=== PATIENT | male | born 1955 | race Caucasian/White ===

== ENCOUNTER 2019-01-15 10:34 | Day surgery (SDC) | payer OTHER ==
[~2019-01-15 10:34] MED LIST: KETOROLAC TROMETHAMINE 30 MG/1ML VIAL ONE; LACTATED RINGERS 1,000 ML IV.SOLN IV ONE; LIDOCAINE HCL 2% PF 100MG/5ML VIAL IJ ONE; MIDAZOLAM HCL 2 MG/2 ML VIAL ONE; ONDANSETRON HCL/PF 4 MG/ 2ML VIAL ONE; PROPOFOL 200 MG/20 ML VIAL IV ONE; SEVOFLURANE 250 ML LIQUID IH ONE; ePHEDrine SULFATE 50 MG/1 ML IVP ONE; fentaNYL CITRATE/PF 100 MCG/2 ML INJ. ONE
== END 2019-01-15 13:40 | disposition home or self-care (01) ==
LOC: OPSURG 10:34
PROVIDERS: ATTEND Chiropractor
DX: M47.26 Other spondylosis with radiculopathy, lumbar region (principal); M99.06 Segmental and somatic dysfunction of lower extremity; M70.61 Trochanteric bursitis, right hip; M99.15 Subluxation complex (vertebral) of pelvic region
CPT/HCPCS: 22505; 27198; 27275; J1885; J2001; J2250; J2405; J2704; J3010; J7120

== ENCOUNTER 2019-01-16 10:56 | Day surgery (SDC) | payer OTHER ==
[~2019-01-16 10:56] MED LIST changes: -KETOROLAC TROMETHAMINE 30 MG/1ML VIAL ONE; -MIDAZOLAM HCL 2 MG/2 ML VIAL ONE; -ONDANSETRON HCL/PF 4 MG/ 2ML VIAL ONE; -ePHEDrine SULFATE 50 MG/1 ML IVP ONE
== END 2019-01-16 13:35 | disposition home or self-care (01) ==
LOC: OPSURG 10:56
PROVIDERS: ATTEND Chiropractor
DX: M47.26 Other spondylosis with radiculopathy, lumbar region (principal); M70.61 Trochanteric bursitis, right hip; M99.15 Subluxation complex (vertebral) of pelvic region; M99.06 Segmental and somatic dysfunction of lower extremity
CPT/HCPCS: 22505; 27198; 27275; J2001; J2704; J3010; J7120

== ENCOUNTER 2019-01-17 10:51 | Day surgery (SDC) | payer OTHER ==
[~2019-01-17 10:51] MED LIST changes: +ESMOLOL HCL 100 MG/10 ML IV ONE; +KETOROLAC TROMETHAMINE 30 MG/1ML VIAL ONE; +ePHEDrine SULFATE 50 MG/1 ML IVP ONE
== END 2019-01-17 12:48 | disposition home or self-care (01) ==
LOC: OPSURG 10:51
PROVIDERS: ATTEND Chiropractor
DX: M47.26 Other spondylosis with radiculopathy, lumbar region (principal); M99.15 Subluxation complex (vertebral) of pelvic region; M99.06 Segmental and somatic dysfunction of lower extremity; M70.61 Trochanteric bursitis, right hip
CPT/HCPCS: 22505; 27198; 27275; J1885; J2001; J2704; J3010; J7120

== ENCOUNTER 2019-06-17 06:31 | Day surgery (SDC) | payer OTHER ==
[2019-06-17] MEDS ORDERED: methylPREDNISolone ACETATE 80 MG/ML VIAL IM ONE (08:48)
[2019-06-17] MEDS ORDERED: fentaNYL CITRATE/PF 100 MCG/2 ML INJ. ONE (08:48)
[2019-06-17] MEDS ORDERED: LIDOCAINE HCL 2% PF 100MG/5ML VIAL IJ ONE (08:48)
[2019-06-17] MEDS ORDERED: LACTATED RINGERS 1,000 ML IV.SOLN IV ONE (08:48)
[2019-06-17] MEDS ORDERED: MIDAZOLAM HCL 2 MG/2 ML VIAL ONE (08:48)
[2019-06-17] MEDS ORDERED: 0.9 % SODIUM CHLORIDE PF 10 ML VIAL IJ ONE (08:48)
[2019-06-17] MEDS ORDERED: LIDOCAINE HCL 1% PF 300MG/30ML VIAL ONE (08:48)
--- NOTE | 2019-07-04 10:39 | Operative Note ---
PROCEDURE DATE: 06/17/2019 PREOPERATIVE DIAGNOSES: 1. Lumbar spondylosis without myelopathy. 2. Lumbar arthropathy. POSTOPERATIVE DIAGNOSES: 1. Lumbar spondylosis without myelopathy. 2. Lumbar arthropathy. PROCEDURE: Lumbar radiofrequency ablation, L4-5 and L5-S1 medial branch levels, bilaterally. LOCATION OF PROCEDURE: [place], [place]. SURGEON: Ilan Cerda M.D. ASSISTANTS: None ANESTHESIA: MAC HISTORY OF PRESENT ILLNESS: Mr. Teran was referred to me by Dr. Corey and Dr. Hensley, who had previously performed lumbar medial branch blocks. I am asked to perform the radiofrequency ablation at the L4-5, L5-S1 level. The patient was seen preoperatively. His chart was reviewed. I have discussed the procedure with the patient extensively, with description of the procedure step by step, benefits and risks as well as other discussions. I have answered all his questions and we are ready to proceed. The patients preprocedure pain level was 4/10 intensity. The patients demographics have been reviewed. The preprocedure paperwork has been reviewed as well as signed informed consent. The patient's condition and proposed procedure, risks and alternative interventions were discussed with the patient, including the risk of bleeding, infection and nerve damage, the potential for efficacy, non-efficacy and increased pain. The patient's questions were answered. The patient voiced understanding and desire to proceed with the procedure. The consent form was signed. PHYSICAL EXAM: On exam, the patient is awake and alert. Vital signs are stable. Heart is regular in rate and rhythm. Eyes PERRLA. Throat clear. Trachea midline. Lungs have good excursion. Abdomen is soft and nontender. The patient has distal lumbosacral tenderness noted. Tenderness with lumbar extension. PLAN: The plan at this time would be to go ahead with the procedure as mentioned above. DESCRIPTION OF PROCEDURE: Preprocedure the patients name and date of were verified, confirmed planned procedure with patient, reviewed discharge instructions and a procedure consent was signed. IV was started per Anesthesia staff. Monitors were applied by Anesthesia staff. The patient was administered IV awake sedation/MAC to promote comfort per Anesthesia. The patient was placed in a prone position. The skin overlying the injection sites was prepped with ChloraPrep and draped in a sterile fashion. Procedural Pause: A procedural pause was performed verifying the correct patient, medical record number, allergies and surgical site immediately prior to starting the procedure. The target injection sites were identified with fluoroscopy. The skin overlying each identified injection site was anesthetized using 3 mL of 0.5% lidocaine MPF with a 25-gauge 1 inch needle. An 18-gauge cannula electrode needle was then advanced under fluoroscopic guidance through the respective skin wheal parallel to the x-ray beam utilizing a bullseye approach to the nerves corresponding to each selected facet joint. Corresponding nerves to cauterize involved the innervation supplying each facet joint from the descending medial branch of the dorsal ramus from the next higher level facet joint and from the ascending medial branch of the dorsal ramus at the same level (for L5-S1 the ascending branch of the L5 dorsal ramus). Nerves to cauterize corresponded to the facet joints as follows: bilateral L4-L5 and L5-S1. To reach each lumbar facet joint median branch nerve from L4-5 to L5-S1 the cannula needle was advanced to the periosteum medial aspect of the transverse process. If the L5-S1 joint was targeted, this corresponded to placing one cannula needle probe on the lateral aspect of the superior articulating process of the facet joint 1 cm above the junction with the sacral ala; a lateral view confirmed correct needle placement. A lateral image was obtained to confirm needle depth. Once the cannula electrode needle was placed, safe positioning was confirmed with motor stimulation at 2 Hz demonstrating multifidus muscle fasciculations but no motor stimulation in the lower extremities. Then 1.5 mL lidocaine 0.5% MPF mixed with steroid was injected through the cannula at each site; total dose of Depo-Medrol 80 mg. The needle tip curve was pointed medially. All needle tip curves were oriented with the concavity facing the periosteum. Then radiofrequency ablation was provided for 90 seconds at 80 degrees. The probes were then removed. The patient had excellent pain relief with no motor weakness in either lower extremity. The skin was washed off and dried. Dressings were applied to injection sites. It should be noted that motor testing was performed and was negative following placement of the needles. The radiofrequency ablation was performed at 80 degrees for 90 seconds with Venom Avangate BV needles. No rotation of the needle or secondary burn needed to be performed. The procedure was completed without complication and was tolerated well. The patient was monitored during and following the procedure. The patient was then brought to the Recovery Room for further evaluation. The patient was discharged home in stable condition with no untoward effects. SPECIMENS: None ESTIMATED BLOOD LOSS: Less than 1 cc OPERATIVE COMPLICATIONS: None The patients postprocedure pain level was 0/10 intensity. POST-PROCEDURE INSTRUCTIONS: The patient was seen and treated in the recovery room. He had no complaints of pain. He was seen again prior to discharge in his hospital room, again doing much better. The patient is to follow back with Dr. Corey following this visit. Again, I thank Dr. Corey for the referral of this patient to me at this time. Ilan Cerda M.D. Rosi Job #[id number] MTDD
== END 2019-06-17 09:40 | disposition home or self-care (01) ==
LOC: OPSURG 06:31
PROVIDERS: ATTEND Pain Medicine Interventional Pain Medicine
DX: M47.816 Spondylosis without myelopathy or radiculopathy, lumbar region (principal)
CPT/HCPCS: 64635; 64636; J1040; J2001; J2250; J3010; J7120